=== PATIENT | female | born 1970 | race Caucasian/White ===

== ENCOUNTER 2021-03-24 17:46 | Emergency (ER) | payer OTHER ==
[2021-03-24 17:54] VITALS: BP 150/84; PULSE 98; RESP 16; TEMP 98.7
--- NOTE | 2021-03-24 18:39 | XR ---
EXAMINATION TYPE: XR ankle complete RT DATE OF EXAM: 03/24/2021 COMPARISON: NONE HISTORY: Fall. Ankle pain. TECHNIQUE: 3 views FINDINGS: There is soft tissue swelling over the lateral malleolus. Ankle mortise is anatomic. I see no fracture nor dislocation. There is small plantar calcaneal spur. IMPRESSION: Soft tissue swelling. No fracture seen.
--- NOTE | 2021-03-24 18:48 | ED ---
Lower Extremity Injury HPI - General Chief Complaint: Extremity Injury, Lower Stated Complaint: ankle injury Time Seen by Provider: 03/24/21 18:00 Source: patient, RN notes reviewed Mode of arrival: ambulatory Limitations: no limitations - History of Present Illness Initial Comments: Patient is a 50-year-old female presenting to the emergency Department with complaints of right ankle pain after she slipped and fell just prior to arrival. She states about 2 hours ago, she slipped on the last step of her stairs and rolled her right ankle. She does have some mild swelling to the area, pain with palpation. She denies any previous surgeries or injuries to her right ankle. She denies any other pain from this fall. She has no further complaints. - Related Data Allergies Allergy/AdvReac Type Severity Reaction Status Date / Time erythromycin base Allergy Unknown Verified 03/24/21 17:51 Review of Systems ROS Statement: Those systems with pertinent positive or pertinent negative responses have been documented in the HPI. ROS Other: All systems not noted in ROS Statement are negative. Past Medical History Past Medical History: No Reported History History of Any Multi-Drug Resistant Organisms: None Reported Past Surgical History: Section, Hysterectomy, Tonsillectomy Past Psychological History: No Psychological Hx Reported Smoking Status: Never smoker Past Alcohol Use History: Occasional Past Drug Use History: None Reported General Exam - General Exam Comments Initial Comments: GENERAL: Patient is well-developed and well-nourished. Patient is nontoxic and in no acute distress. HEAD: Atraumatic, normocephalic. EYES: Pupils equal round and reactive to light, extraocular movements intact, sclera anicteric, conjunctiva are normal. Eyelids were unremarkable. LUNGS: Unlabored respirations. Breath sounds clear to auscultation bilaterally and equal. No wheezes rales or rhonchi. HEART: Regular rate and rhythm without murmurs, rubs or gallops. MUSCULOSKELETAL: Patient is mildly tender over the right lateral malleolus, she does have some mild swelling present, no obvious deformity. No pain of the right foot. Neurovascular intact. No clubbing or cyanosis. NEUROLOGICAL: Patient is alert and oriented x 3. SKIN: Warm, Dry, normal turgor, no rashes or lesions noted. Limitations: no limitations Course Vital Signs 03/24/21 17:52 Temperature 98.7 F Pulse Rate 98 Respiratory 16 Rate Blood Pressure 150/84 O2 Sat by Pulse 100 Oximetry Medical Decision Making - Medical Decision Making Patient is a 50-year-old female here with right ankle pain after she slipped on the last step of her stairs about 2 hours prior to arrival. Just some mild swelling on exam, no obvious deformity. X-rays reveal no fractures or dislocations. I discussed with patient this is an ankle sprain. Recommended ice, ibuprofen for discomfort. She'll follow up with her primary care. She is agreeable to this and is stable for discharge. Disposition Clinical Impression: Right ankle sprain Disposition: HOME SELF-CARE Condition: Stable Instructions (If sedation given, give patient instructions): Ankle Sprain (ED) Additional Instructions: Please return to the Emergency Department if symptoms worsen or any other concerns. Recommend ice to the area, ibuprofen for any discomfort. If symptoms persist without improvement after 1-2 weeks, follow up with your primary care. Is patient prescribed a controlled substance at d/c from ED?: No Referrals: Nonstaff,Physician [Primary Care Provider] - 1-2 days Time of Disposition: 18:47
== END 2021-03-24 19:12 | disposition home or self-care (01) ==
LOC: EC 17:46
DX: S93.401A Sprain of unspecified ligament of right ankle, initial encounter (principal); W01.0XXA Fall on same level from slipping, tripping and stumbling without subsequent striking against object, initial encounter
CPT/HCPCS: 99284